=== PATIENT | male | born 1935 | race Caucasian/White ===

== ENCOUNTER → 2017-07-28 | Outpatient (CLI) | payer MEDICARE ==
[~2017-07-28] MED LIST: DIATRIZOATE MEGL/DIATRIZOA SOD 30 ML BTL PO ONE; IOPAMIDOL 370 MG/ML 200 ML INFUS..BTL INJ ONE; SODIUM CHLORIDE 0.9% 50ML 50 ML ONE
[2017-07-28 15:36] LABS: BLOOD UREA NITROGEN 19 mg/dL (7-26); BUN/CREATININE RATIO 23 (6-25); CREATININE, SERUM 0.83 mg/dL (0.72-1.25); EST GLOMERULAR FILTRATION RATE > 60 ML/MIN (60-)
--- NOTE | 2017-07-28 17:51 | Diagnostic Imaging Report ---
EXAM: CT Abdomen and Pelvis WITH contrast INDICATION: \[id number] \S\[id number] \S\LLQ ABD SWELLING, MASS AND LUMP COMPARISON: None. TECHNIQUE: Abdomen and pelvis were scanned utilizing a multidetector helical scanner from the lung base to the pubic symphysis after administration of IV contrast. Coronal and sagittal reformations were obtained. Routine protocol was performed. Scan was performed when during portal venous phase. IV CONTRAST: 100 mL of Isovue-370 ORAL CONTRAST: Gastrografin COMPLICATIONS: None RADIATION DOSE: Total DLP: 571.63 mGy*cm Estimated effective dose: (DLP x 0.015 x size factor) mSv CTDIvol has been reviewed. It is below the limits set by the Radiation Protocol Committee (RPC). FINDINGS: LINES and TUBES: None. LOWER THORAX: Unremarkable. Evidence of CABG surgery. HEPATOBILIARY: No focal hepatic lesions. No biliary ductal dilation. GALLBLADDER: Surgically absent. SPLEEN: No splenomegaly. 0.7 cm cyst in superior portion. PANCREAS: No focal masses or ductal dilatation. ADRENALS: No adrenal nodules KIDNEYS/URETERS: Kidneys enhance symmetrically. No hydronephrosis. No renal mass. Approximately 2 cm right inferior pole parapelvic cyst. There are multiple bilateral subcentimeter hypodensities which are too small to characterize. 5 mm left midpole calculus. GI TRACT: No abnormal distention, wall thickening, or evidence of bowel obstruction. Appendix is not visualized. PELVIC ORGANS/BLADDER: Unremarkable. LYMPH NODES: No lymphadenopathy. VESSELS: Moderate to severe aortoiliac atherosclerotic disease. Focal ectasia of the infrarenal abdominal aorta measuring 2.8 cm (series 2, image 53). Questionable thin septation is seen just above this level which may represent intimal flap versus artifact (series 2, image 46). PERITONEUM / RETROPERITONEUM: No free air or fluid. BONES: Age indeterminate T12 vertebral body compression deformity. SOFT TISSUES: Indirect left inguinal hernia, concerning nonobstructed loop of sigmoid colon. The hernia sac measures approximately 9.5 x 5.4 cm. IMPRESSION: 1. Indirect left inguinal hernia, containing nonobstructed loop of sigmoid colon. 2. Severe aortoiliac atherosclerotic disease with focal ectasia of infrarenal abdominal aorta, measuring 2.8 cm. Questionable thin intimal flap is seen just above this level. This can be further evaluated with dissection protocol abdominal CT. 3. Age indeterminate T12 vertebral body compression deformity. 4. Subcentimeter nonobstructive left renal calculus. Signed by: Dr. Franki Cantrell MD on 07/28/2017 5:47 PM
== END ==
LOC: CT 14:43
PROVIDERS: ATTEND Family Medicine
DX: R19.04 Left lower quadrant abdominal swelling, mass and lump (principal)
CPT/HCPCS: 36415; 74177; 82565; 84520; Q9967

== ENCOUNTER → 2017-08-23 | Outpatient (CLI) | payer MEDICARE, OTHER ==
[~2017-08-23] MED LIST changes: -DIATRIZOATE MEGL/DIATRIZOA SOD 30 ML BTL PO ONE; +SODIUM CHLORIDE 0.9% 250ML 500 ML ONE
[2017-08-23 13:36] LABS: CREATININE, SERUM 1.62 mg/dL (0.72-1.25)
--- NOTE | 2017-08-23 15:07 | Diagnostic Imaging Report ---
EXAM: CTA Abdomen and Pelvis WITH CONTRAST. DATE: 08/23/2017 12:45 PM INDICATION: COMPARISON: 07/28/2017 CT TECHNIQUE: CT angiogram of the abdomen and pelvis was obtained after the administration of IV contrast. Prospective gating was performed. Images reviewed in the axial, coronal, and sagittal planes. 3D reconstructions performed on off-line workstation. IV Contrast: 100 mL Isovue-370. Total DLP: 664 mGy*cm Est. Eff. Dose DLP x 0.015 x size factor mSv (CTDIvol has been reviewed and is below limits set by [facility]). FINDINGS: VASCULAR: Abdominal Aorta Mesenteric Segment: 27 x 26 mm. Abdominal Aorta Just Below Renal Arteries: 25 x 20 mm. Mid Infrarenal Abdominal Aorta: 24 x 22 mm. Inferior infrarenal abdominal aorta: 30 x 27 Abdominal Aortal at Bifurcation: 23 x 22 mm. Mesenteric Arteries: Celiac trunk and SMA are patent. There is mild narrowing of the proximal celiac trunk with mild distal ectasia 10 mm maximal diameter. Moderate atherosclerotic changes present in renal arteries with possible stent proximally on the left. VINCENT patent. Other: Moderate infrarenal aortic atherosclerotic changes with moderate mural plaque. There is a tiny presumed chronic focal dissection versus penetrating atheromatous ulcer in the mid infrarenal aorta just prior to area of ectasia. This is best seen axial image 96 and sagittal image 62. RCIA: 12 mm. LCIA: 12 mm. Internal Iliac Arteries: Moderate atherosclerotic changes. Abdomen: Lung Bases: No acute findings. Solid Organs: Nonobstructing renal calculi. Probable parapelvic cysts on the right. Solid organs otherwise unremarkable. Upper GI Tract: Gastric decompression limits adequate evaluation. No small bowel obstructive changes. Lymph Nodes: No suspicious adenopathy. Other: None. Pelvis: Bladder: Not included. Other: None. Colon: No acute changes in visualized colon. Distal colon not included. Bones: Moderate compression deformity T12. IMPRESSION: 1. Moderate abdominal aortic atherosclerotic changes and mural plaque. 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 2. Nonobstructing renal calculi. 3. Moderate T12 compression deformity. This was present on 07/27/2016 lumbar MRI. 4. Other findings as above. Signed by: Dr. Wu Hickman MD on 08/23/2017 3:04 PM
== END ==
LOC: CT 12:31
PROVIDERS: ATTEND Family Medicine
DX: I71.03 Dissection of thoracoabdominal aorta (principal)
CPT/HCPCS: 36415; 74175; 82565; 84520; J7050; Q9967

== ENCOUNTER → 2017-09-19 | Day surgery (SDC) | payer MEDICARE ==
[2017-09-18 12:09] LABS: BASOPHILS # (AUTO) 0.1 (0.0-0.1); BASOPHILS % 0.9 % (0.0-1.0); EOSINOPHILS # (AUTO) 0.4 (0.0-0.4); EOSINOPHILS % 3.6 % (0.0-6.0); HEMATOCRIT 41.7 % (38.2-49.6); LYMPHOCYTES # (AUTO) 2.7 (1.0-3.2); LYMPHOCYTES % 23.3 % (18.0-39.1); MEAN CORPUSCULAR HEMOGLOBIN 30.1 pg (28-32); MEAN CORPUSCULAR HGB CONC 33.6 g/dL (31-35); MEAN CORPUSCULAR VOLUME 89.7 fL (81-99); MONOCYTES # (AUTO) 0.8 (0.2-0.8); MONOCYTES % 7.2 % (4.4-11.3); NEUTROPHILS # (AUTO) 7.4 (2.1-6.9); NEUTROPHILS % 64.6 % (38.7-80.0); PLATELET COUNT 273 x10e3/uL (140-360); RED BLOOD COUNT 4.65 x10e6/uL (4.3-5.7); RED CELL DISTRIBUTION WIDTH 14.4 % (11.7-14.4)
[2017-09-18 12:24] LABS: INR 1.09; PROTHROMBIN TIME 13.3 seconds (11.9-14.5)
[2017-09-18 12:25] LABS: PARTIAL THROMBOPLASTIN TIME 28.6 seconds (23.8-35.5)
[2017-09-18 12:31] LABS: ANION GAP 13.5 mmol/L (8-16); BLOOD UREA NITROGEN 29 mg/dL (7-26); BUN/CREATININE RATIO 17 (6-25); CARBON DIOXIDE 28 mmol/L (22-29); CHLORIDE 105 mmol/L (98-107); CHOL/HDL RATIO 7.4 (3.9-4.7); CHOLESTEROL 192 MD/DL (0-199); CREATINE KINASE 125 IU/L (30-200); CREATININE, SERUM 1.74 mg/dL (0.72-1.25); EST GLOMERULAR FILTRATION RATE 38 ML/MIN (60-); GLUCOSE 97 mg/dL (74-118); HDL CHOLESTEROL 26 MG/DL (40-60); POTASSIUM 4.5 mmol/L (3.5-5.1); SODIUM 142 mmol/L (136-145)
[2017-09-18 12:40] LABS: LDL CHOLESTEROL 120 MG/DL (60-130); TRIGLYCERIDES 232 MG/DL (0-149)
[2017-09-18 12:51] LABS: THYROID STIMULATING HORMONE 4.726 uIU/mL (0.350-4.940)
[2017-09-18 12:52] LABS: DIGOXIN < 0.30 ng/mL (0.8-2.0)
[~2017-09-19] MED LIST changes: +ATORVASTATIN CA80 MG PO; +CEFAZOLIN SOD 1 GM VIAL ONE; +DEXTROSE IV ONE; +DILTIAZEM HCL60 MG PO; +FENTANYL CITRATE/PF 100MCG/2 ML INJ ONE; +HEPARIN SOD/SOD CHLORIDE 2,000 ML ONE; +LANOXIN250 MCG PO; +LIDOCAINE HCL 2% LOCAL 20 ML VIAL ONE; +MAXZIDE 37.5 M1 EACH PO; +METOPROLOL TART25 MG PO; +MIDAZOLAM HCL 2 MG/2 ML VIAL ONE; +QUINAPRIL HCL20 MG PO; +SOD CHL IV ONE; +SODIUM CHLORIDE 0.9% 100 ML 100 ML ONE; +SODIUM CHLORIDE 0.9% 1000ML 1,000 ML ONE; -SODIUM CHLORIDE 0.9% 250ML 500 ML ONE; -SODIUM CHLORIDE 0.9% 50ML 50 ML ONE; +WARFARIN SODIU2.5 MG PO
--- OUTSIDE RECORDS SUMMARY | 2017-09-19 06:10 | XMS REPORT ---
Author Author [facility] Address Unknown Phone Unavailable Care Team Providers Care Appeals Board Referee Name Role Phone JENNI RUBI Unavailable Unavailable Problems This patient has no known problems. Allergies, Adverse Reactions, Alerts This patient has no known allergies or adverse reactions. Medications This patient has no known medications. Results Test Description Test Time Test Comments Text Results Atomic Results Result Comments CTA ABDOMEN [place] [address] Patient Name: BEATRIZ DISLA MR #: [id number] : 1935 Age/Sex: 82/M Req #: [id number] Adm Physician: Ordered by: JENNI RUBI MD Report #: [id number] Location: CT Room/Bed: Procedure: [id number] CT/CTA ABDOMEN Exam Date: 08/23/17 Exam Time: 1430 REPORT STATUS: Signed EXAM: CTA Abdomen and Pelvis WITH CONTRAST. DATE: 08/23/2017 12:45 PM INDICATION: COMPARISON: 07/28/2017 CT TECHNIQUE: CT angiogram of the abdomen and pelvis was obtained after the administration of IV contrast. Prospective gating was performed. Images reviewed in the axial, coronal, and sagittal planes. 3D reconstructions performed on off-line workstation. IV Contrast: 100 mL Isovue-370. Total DLP: 664 mGy*cm Est. Eff. Dose DLP x 0.015 x size factor mSv (CTDIvol has been reviewed and is below limits set by [facility]). FINDINGS: VASCULAR: Abdominal Aorta Mesenteric Segment: 27 x 26 mm. Abdominal Aorta Just Below Renal Arteries: 25 x 20 mm. Mid Infrarenal Abdominal Aorta: 24 x 22 mm. Inferior infrarenal abdominal aorta: 30 x 27 Abdominal Aortal at Bifurcation: 23 x 22 mm. Mesenteric Arteries: Celiac trunk and SMA are patent. There is mild narrowing of the proximal celiac trunk with mild distal ectasia 10 mm maximal diameter. Moderate atherosclerotic changes present in renal arteries with possible stent proximally on the left. VINCENT patent. Other : Moderate infrarenal aortic atherosclerotic changes with moderate mural plaque. There is a tiny presumed chronic focal dissection versus penetrating atheromatous ulcer in the mid infrarenal aorta just prior to area of ectasia. This is best seen axial image 96 and sagittal image 62. RCIA: 12 mm. LCIA : 12 mm. Internal Iliac Arteries: Moderate atherosclerotic changes. Abdomen: Lung Bases: No acute findings. Solid Organs: Nonobstructing renal calculi. Probable parapelvic cysts on the right. Solid organs otherwise unremarkable. Upper GI Tract: Gastric decompression limits adequate evaluation. No small bowel obstructive changes. Lymph Nodes: No suspicious adenopathy. Other: None. Pelvis: Bladder: Not included. Other: None. Colon: No acute changes in visualized colon. Distal colon not included. Bones: Moderate compression deformity T12. IMPRESSION: 1. Moderate abdominal aortic atherosclerotic changes and mural plaque. 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 2. Nonobstructing renal calculi. 3. Moderate T12 compression deformity. This was present on 07/27/2016 lumbar MRI. 4. Other findings as above. Signed by: Dr. Wu Hickman MD on 08/23/2017 3:04 PM Dictated By: WU HICKMAN MD [id number] Transcribed By: NADIRA on 08/23/17 0399 COPY TO: JENNI RUBI MD CT ABDOMEN/PELVIS [place] [address] Patient Name: BEATRIZ DISLA MR #: [id number] : 1935 Age/Sex: 82/M Req #: [id number] [facility] Physician: Ordered by: JENNI RUBI MD Report #: [id number] Location: CT Room/Bed: Procedure: [id number] CT/CT ABDOMEN/PELVIS W Exam Date: 07/28/17 Exam Time : 1622 REPORT STATUS: Signed EXAM: CT Abdomen and Pelvis WITH contrast INDICATION: COMPARISON: None. TECHNIQUE: Abdomen and pelvis were scanned utilizing a multidetector helical scanner from the lung base to the pubic symphysis after administration of IV contrast. Coronal and sagittal reformations were obtained. Routine protocol was performed. Scan was performed when during portal venous phase. IV CONTRAST: 100 mL of Isovue-370 ORAL CONTRAST: Gastrografin COMPLICATIONS: None RADIATION DOSE: Total DLP: 571.63 mGy*cm Estimated effective dose: (DLP x 0.015 x size factor) mSv CTDIvol has been reviewed. It is below the limits set by the Radiation Protocol Committee (RPC) . FINDINGS: LINES and TUBES: None. LOWER THORAX: Unremarkable. Evidence of CABG surgery. HEPATOBILIARY: No focal hepatic lesions. No biliary ductal dilation. GALLBLADDER: Surgically absent. SPLEEN: No splenomegaly. 0.7 cm cyst in superior portion. PANCREAS: No focal masses or ductal dilatation. ADRENALS: No adrenal nodules KIDNEYS/ URETERS: Kidneys enhance symmetrically. No hydronephrosis. No renal mass. Approximately 2 cm right inferior pole parapelvic cyst. There are multiple bilateral subcentimeter hypodensities which are too small to characterize. 5 mm left midpole calculus. GI TRACT: No abnormal distention, wall thickening , or evidence of bowel obstruction. Appendix is not visualized. PELVIC ORGANS/BLADDER: Unremarkable. LYMPH NODES: No lymphadenopathy. VESSELS: Moderate to severe aortoiliac atherosclerotic disease. Focal ectasia of the infrarenal abdominal aorta measuring 2.8 cm (series 2, image 53). Questionable thin septation is seen just above this level which may represent intimal flap versus artifact (series 2, image 46). PERITONEUM / RETROPERITONEUM: No free air or fluid. BONES: Age indeterminate T12 vertebral body compression deformity. SOFT TISSUES: Indirect left inguinal hernia, concerning nonobstructed loop of sigmoid colon. The hernia sac measures approximately 9.5 x 5.4 cm. IMPRESSION: 1. Indirect left inguinal hernia, containing nonobstructed loop of sigmoid colon. 2. Severe aortoiliac atherosclerotic disease with focal ectasia of infrarenal abdominal aorta, measuring 2.8 cm. Questionable thin intimal flap is seen just above this level. This can be further evaluated with dissection protocol abdominal CT. 3. Age indeterminate T12 vertebral body compression deformity. 4. Subcentimeter nonobstructive left renal calculus. Signed by: Dr. Franki Feng MD on 07/28/2017 5:47 PM Dictated By: FRANKI FENG MD 46 Transcribed By: NADIRA on 07/28/171746 COPY TO: JENNI RUBI MD
[2017-09-19 06:38] VITALS: BP 150/71
[2017-09-19] MEDS: LORAZEPAM INJ 2 MG/ML VIAL ONE (06:54)
[2017-09-19] MEDS: FAMOTIDINE 20 MG TAB ONE (07:01)
[2017-09-19 12:26] LABS: CALCIUM 9.3 mg/dL (8.4-10.2); CREATININE, SERUM 1.73 mg/dL (0.72-1.25)
[2017-09-19 16:34] LABS: ANION GAP 10.9 mmol/L (8-16); CALCIUM 9.2 mg/dL (8.4-10.2); CREATININE, SERUM 1.85 mg/dL (0.72-1.25); POTASSIUM 3.9 mmol/L (3.5-5.1)
--- NOTE | 2017-09-22 02:04 | Operative Report ---
DATE OF PROCEDURE: September 19, 2017 DIAGNOSES: 1. Coronary artery disease with history of redo aortocoronary bypass procedure and angina pectoris. 2. Transient ischemic attack with evidence of carotid stenosis by ultrasound. 3. Abdominal aortic aneurysm with abnormal CT scan of the abdomen showing evidence and suspicion of dissection of the infrarenal abdominal aorta and the abdominal aneurysm. 4. Peripheral vascular disease. 5. Chronic kidney disease. 6. Large left inguinal hernia considered for surgical repair. PROCEDURES: 1. Cardiac catheterization including selective coronary angiography and injection of bypass grafts as well as left ventricular angiogram. 2. Aortic arch study. 3. Abdominal aortogram. 4. Closure of right femoral artery with Angio-Seal. ANESTHESIA: Local and moderate sedation. DESCRIPTION OF PROCEDURE: After usual prepping and draping, the right inguinal area was infiltrated with local lidocaine and a 6-Kazakh arterial sheath was placed under modified Seldinger technique. Selective coronary angiography and injection of bypass graft was done as well as left ventricular angiography by using modified Sunita-type catheters. A 6-Kazakh angled pigtail catheter was utilized for recording of hemodynamics, left ventricular angiogram in the HOUGH projection, and aortic arch study in the left anterior oblique position, and an abdominal aortogram, right femoral groin angiogram was obtained prior to closure of the right femoral artery with Angio-Seal. FINDINGS OF CARDIAC CATHETERIZATION: The left ventricular pressure was 170 mmHg. The aortic pressure was 165/65 with a mean of 110 mmHg. There was no gradient across the aortic valve. The left ventricular end-diastolic pressure was elevated with 14 mmHg, peaking at 24 mmHg. The left main coronary artery showed 85% stenosis in the distal portion of the left main, which extended into the ostial portion of the left anterior descending branch as well as the first obtuse marginal branch and left circumflex artery. There also was 85% stenosis just takeoff after a large diagonal branch of the LAD. There was a second obtuse marginal branch, which was totally occluded and showed distal collaterals to this branch from the right coronary artery and the left anterior descending branch. The right coronary artery was totally occluded; however, the saphenous vein graft was patent with some mild plaque formation and a 30% segmental narrowing in the mid portion. There also was about a 30% narrowing in the proximal portion of the saphenous vein graft. The left internal mammary artery was quite small showing bidirectional flow and was inserted in the mid LAD. The patient also had a saphenous vein graft to the obtuse marginal branch, which was part of the redo operation and which originated from the descending aorta and showing also bidirectional flow pattern. The left ventricular angiogram showed inferior hypokinesis and scar. The global left ventricular ejection fraction was 40%. The aortic arch study showed about a 75% narrowing of left internal carotid artery at its takeoff. There was about a 40% stenosis involving the right carotid bifurcation. The right vertebral artery had 80% ostial stenosis. There was some mild plaque formation in the right and left subclavian arteries. Extensive calcification was noted in the area of the ascending aorta and aortic arch. Selective left subclavian and vertebral angiogram were also performed showing the small left internal mammary artery and a normal appearance of the left vertebral artery and mild plaque formation in the proximal left subclavian artery without any significant stenosis. The abdominal aortogram showed patent left renal stent. There appeared to be eccentric 40% to 50% stenosis at the ostium. Right renal artery and the right kidney could not be visualized on this angiogram. There was evidence of an infrarenal abdominal aortic aneurysm above the iliac bifurcation, however, there was no evidence of dissection. There also was a plaque in the mid portion of this infrarenal abdominal aorta causing about a 30% stenosis. The common iliac arteries also showed aneurysmatic dilatations and stenotic areas. There was about 70% stenosis of the left common iliac artery and about 40% stenosis of the right common iliac artery. IMPRESSION: 1. Severe calcific coronary artery disease with patent grafts. 2. Left ventricular dysfunction with impaired ejection fraction of 40% and inferior scar and an elevated left ventricular end-diastolic pressure ranging from 14 to 24 mmHg. 3. Severe stenosis at takeoff of the left internal carotid artery with moderate stenosis of the right carotid bifurcation. Also severe stenosis was noted at the ostium of the right vertebral artery. 4. Infrarenal abdominal aortic aneurysm without any evidence of dissection. 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 This information was related to the patient and patient's family. Despite extensive arteriosclerosis and findings that were described, the patient should be able to undergo left inguinal hernia repair. He will be followed closely as outpatient and will be continued on IV fluids until hospital discharge, and was encouraged to stay well hydrated because of his chronic kidney disease and will need to be followed closely with regard to his renal function after receiving IV contrast. Job#: [id number] cc:JENNI RUBI MD
== END | disposition home or self-care (01) ==
LOC: CATH LAB 06:07
PROVIDERS: ATTEND Internal Medicine Cardiovascular Disease
DX: I25.119 Atherosclerotic heart disease of native coronary artery with unspecified angina pectoris (principal); I25.82 Chronic total occlusion of coronary artery; I71.4 Abdominal aortic aneurysm, without rupture; I72.3 Aneurysm of iliac artery; I65.23 Occlusion and stenosis of bilateral carotid arteries; I73.9 Peripheral vascular disease, unspecified; I70.8 Atherosclerosis of other arteries; K40.90 Unilateral inguinal hernia, without obstruction or gangrene, not specified as recurrent; N18.9 Chronic kidney disease, unspecified; Z01.812 Encounter for preprocedural laboratory examination; R94.31 Abnormal electrocardiogram [ECG] [EKG]; I70.1 Atherosclerosis of renal artery; Z96.0 Presence of urogenital implants; N40.0 Benign prostatic hyperplasia without lower urinary tract symptoms; I48.0 Paroxysmal atrial fibrillation; H54.7 Unspecified visual loss; Z86.711 Personal history of pulmonary embolism; Z86.73 Personal history of transient ischemic attack (TIA), and cerebral infarction without residual deficits; Z86.718 Personal history of other venous thrombosis and embolism; Z79.01 Long term (current) use of anticoagulants
CPT/HCPCS: 36140; 36200; 36415; 75625; 80048; 80061; 80162; 82550; 84443; 85025; 85610; 85730; 93452; 93459; J0690; J2001; J2060; J2250; J7030; Q9967

== ENCOUNTER 2017-09-20 15:30 | Inpatient (IN) | payer MEDICARE ==
[~2017-09-20] VITALS: Ht 170.2 cm; Wt 83.9 kg
[~2017-09-20 15:30] MED LIST changes: -CEFAZOLIN SOD 1 GM VIAL ONE; -DEXTROSE IV ONE; -FENTANYL CITRATE/PF 100MCG/2 ML INJ ONE; -HEPARIN SOD/SOD CHLORIDE 2,000 ML ONE; -IOPAMIDOL 370 MG/ML 200 ML INFUS..BTL INJ ONE; -LIDOCAINE HCL 2% LOCAL 20 ML VIAL ONE; -MIDAZOLAM HCL 2 MG/2 ML VIAL ONE; -SOD CHL IV ONE; -SODIUM CHLORIDE 0.9% 100 ML 100 ML ONE; -SODIUM CHLORIDE 0.9% 1000ML 1,000 ML ONE
[2017-09-20] MEDS ORDERED: MAGNESIUM HYDROXIDE 30 ML UDC PO PRN (15:45)
[2017-09-20] MEDS ORDERED: ACETAMINOPHEN 325 MG TAB PO PRN (15:45)
[2017-09-20] MEDS ORDERED: MAGNESIUM/ALUMINUM/SIMETHICONE 30 ML UDC PO PRN (15:45)
[2017-09-20] MEDS ORDERED: DEXTROSE 5%/0.225% SOD CHL 1,000 ML IV SCH (15:45)
[2017-09-20] MEDS ORDERED: NITROGLYCERIN 0.4 MG SUBL SL PRN (15:45)
[2017-09-20 16:00] VITALS: BP 115/56
[2017-09-20 16:40] LABS: ANION GAP 12.7 mmol/L (8-16); CALCIUM 9.7 mg/dL (8.4-10.2); CREATININE, SERUM 2.63 mg/dL (0.72-1.25); POTASSIUM 3.7 mmol/L (3.5-5.1)
[2017-09-20 16:49] VITALS: BP 115/56
[2017-09-20] MEDS: DEXTROSE 5%/0.9% SOD CHL 1,000 ML IV SCH (18:48)
--- NOTE | 2017-09-20 19:15 | Diagnostic Imaging Report ---
Ultrasound of the kidneys and renal Doppler evaluation HISTORY: Acute kidney insufficiency COMPARISON: None DISCUSSION: Examination of the kidneys is unremarkable bilaterally without evidence of hydronephrosis. The peak systolic velocity in the proximal abdominal aorta is 104 cm/s. RIGHT: The right kidney measures 9.7 cm in maximal sagittal diameter. No solid mass. No hydronephrosis. Right parapelvic cyst 2.8 cm. The peak systolic velocity in the right renal artery is 17 cm/s. (Normal < 180 cm/s) Right renal artery/aortic PSV ratio is 0.6 (Normal < 3.3) LEFT: The left kidney measures 10.4 cm in maximal sagittal diameter. No solid mass. No hydronephrosis. The peak systolic velocity in the left renal artery is 135 cm/s. (Normal < 180 cm/s) Left renal artery/aortic PSV ratio is 1.3 (Normal < 3.3) The left renal stents not well visualized sonographically. IMPRESSION: Normal sonographic appearance of the kidneys. No finding of renal artery stenosis. Signed by: Dr. Chris Nichols M.D. on 09/20/2017 7:12 PM
[2017-09-20] MEDS: ACETYLCYSTEINE 200 MG/ML 4ML VIAL PO SCH (19:30)
[2017-09-20 20:00] VITALS: BP 117/58
[2017-09-20] MEDS: ENOXAPARIN SOD INJ 40 MG/0.4 ML SYR SC SCH (20:56)
[2017-09-20] MEDS: PANTOPRAZOLE 40 MG 10ML VIAL IV SCH (20:56)
[2017-09-20] MEDS ORDERED: ENOXAPARIN SOD INJ 40 MG/0.4 ML SYR SC SCH (21:00)
[2017-09-21] VITALS (7 sets, daily range): BP systolic 112–161; BP diastolic 55–70
[2017-09-21 07:15] LABS: BASOPHILS # (AUTO) 0.1 (0.0-0.1); BASOPHILS % 0.4 % (0.0-1.0); EOSINOPHILS # (AUTO) 0.2 (0.0-0.4); EOSINOPHILS % 1.7 % (0.0-6.0); HEMATOCRIT 37.8 % (38.2-49.6); HEMOGLOBIN 12.9 g/dL (14.0-18.0); LYMPHOCYTES # (AUTO) 1.5 (1.0-3.2); LYMPHOCYTES % 10.4 % (18.0-39.1); MEAN CORPUSCULAR HEMOGLOBIN 30.2 pg (28-32); MEAN CORPUSCULAR HGB CONC 34.1 g/dL (31-35); MEAN CORPUSCULAR VOLUME 88.5 fL (81-99); MONOCYTES # (AUTO) 1.2 (0.2-0.8); MONOCYTES % 8.7 % (4.4-11.3); NEUTROPHILS # (AUTO) 10.9 (2.1-6.9); NEUTROPHILS % 78.4 % (38.7-80.0); PLATELET COUNT 186 x10e3/uL (140-360); RED BLOOD COUNT 4.27 x10e6/uL (4.3-5.7); RED CELL DISTRIBUTION WIDTH 14.4 % (11.7-14.4)
[2017-09-21 07:25] LABS: INR 1.14; PROTHROMBIN TIME 13.7 seconds (11.9-14.5)
[2017-09-21 07:30] LABS: ANION GAP 11.8 mmol/L (8-16); CALCIUM 9.4 mg/dL (8.4-10.2); CREATININE, SERUM 2.52 mg/dL (0.72-1.25); POTASSIUM 3.8 mmol/L (3.5-5.1)
[2017-09-21] MEDS: DEXTROSE 5%/0.9% SOD CHL 1,000 ML IV SCH ×2 (07:32→22:20)
[2017-09-21] MEDS: PANTOPRAZOLE 40 MG 10ML VIAL IV SCH ×2 (08:40→22:00)
[2017-09-21] MEDS: DILTIAZEM HCL 180 MG CAP CD PO SCH (08:40)
[2017-09-21] MEDS: ACETYLCYSTEINE 200 MG/ML 4ML VIAL PO SCH ×2 (08:40→17:25)
--- NOTE | 2017-09-21 14:40 | Consultation ---
DATE OF CONSULTATION: September 21, 2017 NEPHROLOGY CONSULTATION REASON FOR CONSULT: Acute kidney injury. This is an 82-year-old pleasant male who is legally blind. He has multiple medical problems, including hypertension and coronary artery disease, status post CABG times 2 and dyslipidemia. He has left lower extremity DVT, on warfarin. He has also AFib. He follows with Dr. Killian as an outpatient. He probably has chronic kidney disease, stage 3, as we go back in the records with his creatinine between 1.7 and 2. Basically, he came for a left heart cath that was done on September 20, 2017, along with selective angiography. The patient the day after was having some nausea and not feeling well. He was called in to have some labs to be checked, and his creatinine was elevated. Thus, he was called in for the hospital for management. We are consulted given his creatinine worsening and decline. Today, the patient is doing well. He has a Luz. He has a history of BPH in the past and status post TURP. PAST MEDICAL HISTORY: As mentioned above. PAST SURGICAL HISTORY: As mentioned above. FAMILY HISTORY: Positive for hypertension and coronary artery disease on the mother's side. SOCIAL HISTORY: Denies smoking, alcohol or IV drug abuse. ALLERGIES: NEGATIVE PER RECORDS. PHYSICAL EXAMINATION VITAL SIGNS: Today, his vital signs include a blood pressure of 150/70, heart rate 79, temperature 98.6. GENERAL: No acute distress times 3. HEENT: No lymphadenopathy. HEART: Regular rate and rhythm. LUNGS: Good bilateral air entry. ABDOMEN: Soft and nontender. EXTREMITIES: Trace edema. LABS: Sodium today is 138, potassium 3.8. His BUN is 28 down from 32, creatinine 2.5 from 2.6. GFR is 25. Calcium 9.4. His INR is 1.14. Hemoglobin 12.9, white count 13.9. His renal ultrasound showed that there is normal appearance of the kidney with no finding of renal artery stenosis. However, the record in his chart is mentioning that he had a left heart cath with angiography showing as it is written renal artery stenosis absent right kidney. Stent in left RA. ASSESSMENT AND PLAN 1. Acute kidney injury on chronic kidney disease, stage 3 with his baseline creatinine of 1.7 to 2 in the last few years that he has been here according to the record. He is being admitted with acute kidney injury suspecting contrast-induced nephropathy. The patient was told to drink a lot of water. However, he did not hold his WENDIE inhibitor and diuretics prior to the procedure. He had a moderate risk for contrast-induced nephropathy given his risk factors and his level of chronic kidney disease to begin with. At this point, he is getting Mucomyst and intravenous fluids. I hope his creatinine will plateau and start improving back to his baseline. We are going to do serial lab work, and to check fractional secretion of sodium. In the meantime, avoid nonsteroidal anti-inflammatory drugs and nephrotoxins, and monitor his kidney function and urine output. Also, there is a mention of renal artery stenosis absent on the right kidney and stent in the left renal artery. However, the ultrasound did not mention that. We are going to try to get the records from Dr. Killian's office regarding the procedure and what was done. He has a previous history of possible aortic dissection at that time in 2014 that was infrarenal. At this time, his ultrasound was okay. The patient was told that his right kidney is not working. I am going to order 24-hour creatinine clearance and monitor closely. Check renal perfusion scan. 2. Electrolytes: Potassium is in good range. I will change intravenous fluids to isotonic. Sodium was 136. 3. Hypertension: Blood pressure is okay. Hold WENDIE inhibitor in the meantime and hydrochlorothiazide/triamterene. 4. Coronary artery disease: Status post bypass. Clinically compensated. 5. Atrial fibrillation: Rate controlled. 6. History of deep venous thrombosis, on warfarin: Monitor INR. It was held before his heart cath procedure. 7. BPH: Status post transurethral resection of prostate. He has a Luz with good urine output. He is nonoliguric. 8. History of carotid stenosis and triple-A: Cardiology is following. Status post left heart cath. Follow their recommendations. Thank you for the consult. We will update the primary team for further recommendations. Job#: [id number] TWIN
[2017-09-21 18:08] LABS: SODIUM,URINE 68 mmol/L
[2017-09-21 18:47] LABS: EOSINOPHIL SMEAR,URINE NONE SEEN (NONE SEEN)
[2017-09-21] MEDS: ENOXAPARIN SOD INJ 40 MG/0.4 ML SYR SC SCH (22:00)
[2017-09-22] VITALS (7 sets, daily range): BP systolic 117–161; BP diastolic 53–69
[2017-09-22 08:01] LABS: BASOPHILS # (AUTO) 0.1 (0.0-0.1); BASOPHILS % 0.5 % (0.0-1.0); EOSINOPHILS # (AUTO) 0.2 (0.0-0.4); EOSINOPHILS % 1.4 % (0.0-6.0); HEMATOCRIT 34.6 % (38.2-49.6); HEMOGLOBIN 11.8 g/dL (14.0-18.0); LYMPHOCYTES # (AUTO) 1.7 (1.0-3.2); LYMPHOCYTES % 14.4 % (18.0-39.1); MEAN CORPUSCULAR HEMOGLOBIN 30.3 pg (28-32); MEAN CORPUSCULAR HGB CONC 34.1 g/dL (31-35); MEAN CORPUSCULAR VOLUME 88.7 fL (81-99); MONOCYTES # (AUTO) 1.1 (0.2-0.8); MONOCYTES % 9.1 % (4.4-11.3); NEUTROPHILS # (AUTO) 8.7 (2.1-6.9); NEUTROPHILS % 74.3 % (38.7-80.0); PLATELET COUNT 180 x10e3/uL (140-360); RED CELL DISTRIBUTION WIDTH 14.1 % (11.7-14.4)
[2017-09-22 08:35] LABS: ANION GAP 10.3 mmol/L (8-16); CALCIUM 8.9 mg/dL (8.4-10.2); CREATININE, SERUM 2.21 mg/dL (0.72-1.25); MAGNESIUM 1.2 MG/DL (1.3-2.1); POTASSIUM 3.3 mmol/L (3.5-5.1)
[2017-09-22] MEDS: DILTIAZEM HCL 180 MG CAP CD PO SCH (09:00)
[2017-09-22] MEDS: PANTOPRAZOLE 40 MG 10ML VIAL IV SCH ×2 (09:00→20:47)
[2017-09-22] MEDS: ACETYLCYSTEINE 200 MG/ML 4ML VIAL PO SCH ×2 (09:00→17:00)
[2017-09-22] MEDS ORDERED: MAGNESIUM OXIDE 400 MG TAB PO ONE (11:15)
[2017-09-22] MEDS ORDERED: POTASSIUM PHOSPHATE 15 MM in SODIUM CHLORIDE 0.9% 250ML 250 ML IV SCH ×4 (11:15)
[2017-09-22] MEDS: DEXTROSE 5%/0.9% SOD CHL 1,000 ML IV SCH (12:09)
--- NOTE | 2017-09-22 16:36 | History and Physical ---
HISTORY: This 82-year-old patient was evaluated for cardiac clearance and kindly referred by Dr. Lemus, the patient's primary care physician and manager control after he had CAT scan which showed suspicion of dissecting infrarenal abdominal aorta and abdominal aortic aneurysm. The patient has very large left inguinal hernia and is considered for surgical repair. Cardiac catheterization and angiography were performed on the 19 of September with pre and post cath because of chronic kidney disease. However, apparently after the patient left the hospital, he became nauseated, having epigastric pain. He denied vomitus, but was retching and was unable to even drink anything. The patient did not seek any medical advice and this information was obtained after the patient was contacted on the morning of 20 of September. A STAT BMP was obtained which showed acute kidney injury and worsening of the patient's creatinine in relation to his pre cardiac catheterization placement metabolic study. Since the patient was still having abdominal distress, he was advised to be hospitalized for close observation and IV fluids as well as obtaining consultation with white work cleaner. PAST HISTORY: Reveals that he had redo aortocoronary bypass procedure, history of myocardial infarction, hypertensive cardiovascular disease, chronic kidney disease, benign prostatic hypertrophy. There is history of TURP. The patient also has history of renal artery stenosis, there is a left renal stent; carotid artery disease; and peripheral vascular disease. Essentially, the patient has severe generalized arteriosclerosis. He also is legally blind. Has hyperlipidemia. Had previous DVT of the left lower extremity and pulmonary embolization. There is history of paroxysmal supraventricular tachycardia and paroxysmal atrial fibrillation, has been on chronic Coumadin anticoagulation. ALLERGIES: NONE KNOWN. SOCIAL HISTORY: Negative. FAMILY HISTORY: Positive for coronary artery disease, hypertension. REVIEW OF SYSTEMS: Remainder of systems reviewed, revealed patient denies any headache or sore throat. The patient denies any cough or sputum production. He denies any chest pain. The patient is still having some epigastric pain. He denies constipation, hematemesis, melena. The patient denies any leg pain or leg swelling. PHYSICAL EXAMINATION: VITAL SIGNS: Patient's blood pressure 130/70. He is afebrile. NECK: Carotid pulses are present. CHEST: Clear to auscultation. CARDIOVASCULAR SYSTEM: Reveals a normal apical impulse. The rhythm is regular. First and second are normal. There is no S3. ABDOMEN: Soft. There is some mild tenderness in the epigastric area. Bowel sounds are present. There are no palpable masses. EXTREMITIES: Pulses are diminished. There is no peripheral edema. NEUROLOGIC: Does not reveal any motor defect. IMPRESSIONS: 1. Acute kidney injury. 2. Chronic kidney disease. 3. Hypertensive cardiovascular disease. 4. Coronary artery disease with history of myocardial infarction and redo aortocoronary bypass procedure. 5. Carotid stenosis. 6. Renovascular hypertension. 7. Peripheral vascular disease. 8. Macular degeneration with legal blindness. The patient is admitted for intravenous fluids, close observation of his renal function, and renal consultation with Dr. Miller and his group. Job#: [id number]
[2017-09-22] MEDS ORDERED: CEFTRIAXONE SOD 1 GM VIAL IV SCH (18:15)
--- NOTE | 2017-09-22 18:43 | Diagnostic Imaging Report ---
ADDENDUM #1 The differential renal function was recalculated based on more tightly drawn contour of the very small right kidney. The differential renal function is left kidney 91% and right kidney 9%. This corresponds more closely to what is expected visually. Signed by: Dr. Kristina Ho M.D. on 09/25/2017 6:23 PM ORIGINAL REPORT Renal Scan Reason for exam: 82 M with NASIR Radiopharmaceutical: Tc-99m MAG3 11 mCi Report: After administration of the radiopharmaceutical, dynamic images of the kidneys were obtained through 40 minutes. LEFT KIDNEY: Perfusion is prompt. The left kidney has a reniform shape but is small.. Extraction of tracer from the blood pool is decreased. Clearance of tracer from the renal parenchyma begins promptly but is not complete by the end of the study. The pelvicaliceal system is not dilated. There is no significant increase in pooling of tracer within the pelvicaliceal system. Drainage of tracer from the pelvicaliceal system is normal. No stasis of tracer is seen in the left ureter. RIGHT KIDNEY: Perfusion of the right kidney is barely discernible. The kidney reniform shape and is very small. Extraction of tracer from the blood pool is markedly decreased. Clearance of tracer from the renal parenchyma is not discernible. The pelvicaliceal system is not dilated. No tracer collects in the pelvicalyceal system. Drainage of tracer from the pelvicaliceal study is normal. No stasis of tracer is seen in the right ureter. DIFFERENTIAL RENAL FUNCTION: Left kidney 85% and right kidney 15% (normal 43-57%). Impression:. 1. The left kidney shows evidence of medical renal disease. The kidney is markedly decreased in size. No hydronephrosis is present. Obstruction is not suspected. 2. The right kidney right kidney is barely discernible and has no apparent excretory function. The differential function of 15% overestimates the contribution of the right kidney to renal function. It can be recalculated on Monday09/25/2017 when a different YOSVANY can be drawn. The YOSVANY drawn includes some liver and this is driving the differential function higher. An addendum to this report will be created. Visually, contribution of the right kidney to renal function is less than 5%. Signed by: Dr. Kristina oH M.D. on 09/22/2017 6:39 PM
[2017-09-22] MEDS ORDERED: POTASSIUM PHOSPHATE 15 MM in SODIUM CHLORIDE 0.9% 250ML 250 ML IV ONE (20:00)
[2017-09-22] MEDS: CEFTRIAXONE SOD 1 GM VIAL IV SCH (20:00)
[2017-09-22] MEDS: ENOXAPARIN SOD INJ 40 MG/0.4 ML SYR SC SCH (20:47)
[2017-09-23] VITALS (8 sets, daily range): BP systolic 134–168; BP diastolic 63–98
[2017-09-23] MEDS: DEXTROSE 5%/0.9% SOD CHL 1,000 ML IV SCH (02:27)
[2017-09-23 07:37] LABS: ANION GAP 11.3 mmol/L (8-16); CALCIUM 8.8 mg/dL (8.4-10.2); CREATININE, SERUM 2.16 mg/dL (0.72-1.25); MAGNESIUM 1.4 MG/DL (1.3-2.1); PHOSPHORUS 2.9 MG/DL (2.3-4.7); POTASSIUM 3.3 mmol/L (3.5-5.1)
[2017-09-23 07:50] LABS: CLARITY,URINE CLEAR (CLEAR); COLOR,URINE YELLOW (YELLOW); KETONES,URINE NEGATIVE (NEGATIVE); LEUKOCYTE ESTERASE ,URINE 1+ (NEGATIVE); NITRITE,URINE NEGATIVE (NEGATIVE); PROTEIN,URINE DIPSTICK 1+ (NEGATIVE)
[2017-09-23 07:51] LABS: BILIRUBIN,URINE NEGATIVE (NEGATIVE); URINE UROBILINOGEN 0.2 mg/dL (0.2 - 1)
[2017-09-23 07:56] LABS: AMYLASE 45 U/L (25-125); LIPASE 56 U/L (8-78)
[2017-09-23 08:15] LABS: BACTERIA,URINE FEW /HPF; EPITHELIAL CELLS,URINE FEW /LPF
[2017-09-23] MEDS: ACETYLCYSTEINE 200 MG/ML 4ML VIAL PO SCH ×2 (09:00→17:00)
[2017-09-23] MEDS: PANTOPRAZOLE 40 MG 10ML VIAL IV SCH ×2 (10:00→20:14)
[2017-09-23] MEDS ORDERED: POTASSIUM CHLORIDE 10 MEQ TABCR PO NR (12:15)
[2017-09-23] MEDS: DILTIAZEM HCL 180 MG CAP CD PO SCH (13:40)
[2017-09-23] MEDS ORDERED: MAGNESIUM SULFATE 2GM/50ML 50 ML IV ONE (13:45)
[2017-09-23] MEDS ORDERED: SODIUM CHLORIDE 0.9% 100 ML 100 ML ONE (17:24)
[2017-09-23] MEDS: CEFTRIAXONE SOD 1 GM VIAL IV SCH (20:14)
[2017-09-23] MEDS: POLYETHYLENE GLYCOL 3350 17 GM PACK PO SCH (20:14)
[2017-09-23] MEDS: ENOXAPARIN SOD INJ 40 MG/0.4 ML SYR SC SCH (20:15)
[2017-09-24] VITALS: BP 147/63
[2017-09-24 04:00] VITALS: BP 136/61
[2017-09-24 07:09] LABS: BASOPHILS # (AUTO) 0.1 (0.0-0.1); BASOPHILS % 0.7 % (0.0-1.0); EOSINOPHILS # (AUTO) 0.3 (0.0-0.4); EOSINOPHILS % 2.6 % (0.0-6.0); HEMATOCRIT 33.3 % (38.2-49.6); HEMOGLOBIN 11.4 g/dL (14.0-18.0); LYMPHOCYTES # (AUTO) 1.5 (1.0-3.2); LYMPHOCYTES % 13.5 % (18.0-39.1); MEAN CORPUSCULAR HEMOGLOBIN 29.9 pg (28-32); MEAN CORPUSCULAR HGB CONC 34.2 g/dL (31-35); MEAN CORPUSCULAR VOLUME 87.4 fL (81-99); MONOCYTES # (AUTO) 1.1 (0.2-0.8); MONOCYTES % 9.8 % (4.4-11.3); PLATELET COUNT 212 x10e3/uL (140-360); RED BLOOD COUNT 3.81 x10e6/uL (4.3-5.7)
[2017-09-24 07:34] LABS: ANION GAP 10.5 mmol/L (8-16); CALCIUM 8.9 mg/dL (8.4-10.2); CREATININE, SERUM 2.02 mg/dL (0.72-1.25); POTASSIUM 3.5 mmol/L (3.5-5.1)
[2017-09-24 08:17] VITALS: BP 159/76
[2017-09-24] MEDS ORDERED: POLYETHYLENE GLYCOL 3350 17 GM PACK PO SCH (09:00)
[2017-09-24] MEDS: DILTIAZEM HCL 180 MG CAP CD PO SCH (09:00)
[2017-09-24] MEDS: ACETYLCYSTEINE 200 MG/ML 4ML VIAL PO SCH (09:00)
[2017-09-24 09:14] LABS: CREATININE,URINE RANDOM 97.97 mg/dL (63-166)
[2017-09-24] MEDS: PANTOPRAZOLE 40 MG 10ML VIAL IV SCH ×2 (09:47→20:27)
[2017-09-24 11:42] VITALS: BP 149/67
[2017-09-24 20:00] VITALS: BP 169/72
[2017-09-24] MEDS: CEFTRIAXONE SOD 1 GM VIAL IV SCH (20:27)
[2017-09-24] MEDS: ENOXAPARIN SOD INJ 40 MG/0.4 ML SYR SC SCH (20:27)
[2017-09-24] MEDS: POLYETHYLENE GLYCOL 3350 17 GM PACK PO SCH (20:27)
[2017-09-24 20:28] VITALS: BP 169/72
[2017-09-24] MEDS ORDERED: POTASSIUM CHLORIDE 20 MEQ TAB CR PO STA (21:08)
[2017-09-25 00:22] VITALS: BP 155/69
[2017-09-25 06:23] VITALS: BP 176/79
[2017-09-25 07:25] LABS: ANION GAP 13.7 mmol/L (8-16); CREATININE, SERUM 2.08 mg/dL (0.72-1.25); POTASSIUM 3.7 mmol/L (3.5-5.1)
[2017-09-25 08:06] VITALS: BP 184/79
[2017-09-25] MEDS: PANTOPRAZOLE 40 MG 10ML VIAL IV SCH (08:34)
[2017-09-25] MEDS: DILTIAZEM HCL 180 MG CAP CD PO SCH (08:34)
[2017-09-25 08:49] VITALS: BP 184/79
[2017-09-25 12:12] VITALS: BP 154/69
[2017-09-25] MEDS ORDERED: PANTOPRAZOLE SOD 40 MG TABEC PO SCH (21:00)
== END 2017-09-25 15:47 | disposition home or self-care (01) | DRG 684 ==
LOC: MED/SURG 15:30
PROVIDERS: ADMIT Internal Medicine Cardiovascular Disease; ATTEND Internal Medicine Cardiovascular Disease
DX: N17.9 Acute kidney failure, unspecified (principal); I25.10 Atherosclerotic heart disease of native coronary artery without angina pectoris; Z95.1 Presence of aortocoronary bypass graft; N40.0 Benign prostatic hyperplasia without lower urinary tract symptoms; I25.2 Old myocardial infarction; I48.0 Paroxysmal atrial fibrillation; Z79.01 Long term (current) use of anticoagulants; I65.29 Occlusion and stenosis of unspecified carotid artery; I73.9 Peripheral vascular disease, unspecified; E78.5 Hyperlipidemia, unspecified; Z86.718 Personal history of other venous thrombosis and embolism; H54.8 Legal blindness, as defined in USA; H35.30 Unspecified macular degeneration; T50.8X5A Adverse effect of diagnostic agents, initial encounter; I12.9 Hypertensive chronic kidney disease with stage 1 through stage 4 chronic kidney disease, or unspecified chronic kidney disease; N18.3 Chronic kidney disease, stage 3 (moderate); I71.4 Abdominal aortic aneurysm, without rupture; K40.90 Unilateral inguinal hernia, without obstruction or gangrene, not specified as recurrent; E87.6 Hypokalemia
CPT/HCPCS: 36415; 76770; 78707; 80048; 81001; 81015; 82150; 82570; 82575; 83690; 83735; 84100; 84156; 84300; 85025; 85610; 93005; 93976; 96361; A9562; J0696; J1650; J7042; J7050

== ENCOUNTER → 2017-11-06 | Day surgery (SDC) | payer MEDICARE ==
[2017-10-30 16:36] LABS: BASOPHILS # (AUTO) 0.1 (0.0-0.1); BASOPHILS % 1.1 % (0.0-1.0); EOSINOPHILS # (AUTO) 1.1 (0.0-0.4); HEMATOCRIT 36.7 % (38.2-49.6); HEMOGLOBIN 12.1 g/dL (14.0-18.0); LYMPHOCYTES # (AUTO) 2.5 (1.0-3.2); LYMPHOCYTES % 22.2 % (18.0-39.1); MEAN CORPUSCULAR HEMOGLOBIN 29.4 pg (28-32); MEAN CORPUSCULAR VOLUME 89.3 fL (81-99); MONOCYTES # (AUTO) 0.8 (0.2-0.8); MONOCYTES % 7.2 % (4.4-11.3); NEUTROPHILS # (AUTO) 6.7 (2.1-6.9); NEUTROPHILS % 59.1 % (38.7-80.0); PLATELET COUNT 250 x10e3/uL (140-360); RED BLOOD COUNT 4.11 x10e6/uL (4.3-5.7); RED CELL DISTRIBUTION WIDTH 15.2 % (11.7-14.4)
[2017-10-30 16:56] LABS: CALCIUM 9.3 mg/dL (8.4-10.2); CREATININE, SERUM 3.09 mg/dL (0.72-1.25)
--- NOTE | 2017-10-30 17:20 | Diagnostic Imaging Report ---
PROCEDURE: Frontal and lateral views of the chest. COMPARISON: None. INDICATIONS: PRE-OP. DENIES CHEST COMPLAINTS FINDINGS: Lines/tubes: None. Lungs: There is no evidence of pneumonia or pulmonary edema. Pleura: There is no pleural effusion or pneumothorax. Heart and mediastinum: The heart and the mediastinum are normal. Median sternotomy wires and mediastinal clips. Calcifications of the aortic arch. Bones: No acute bony abnormality. Remote fractures of posterior medial right-sided ribs. Spondylosis of thoracic spine. Surgical clips projected in the right upper quadrant pain and IMPRESSION: 1. No acute cardiopulmonary disease. Kraig Turner M.D. Dictated by: Kraig Turner M.D. on 10/30/2017 at 17:24 Electronically approved by: Kraig Turner M.D. on 10/30/2017 at 17:24
[~2017-11-06] MED LIST changes: +ACETAMINOPHEN 1000 MG/100 ML IV ONE; +AMLODIPINE BESYL5 MG PO; +BUPIVACAINE 0.25% 30ML SDV INJ ONE; +BUPIVACAINE/EPINEPHRINE 0.25% 10 ML SDV INJ ONE; +DEXAMETHASONE SOD PHOS INJ 4 MG/ML VIAL ONE; +EPHEDRINE SULFATE INJ 50 MG/10 ML SYR ONE; +FENTANYL CITRATE/PF 100MCG/2 ML INJ ONE; +HYDROCODONE/APAP 7.5MG-325MG 1 EA TAB ONE; +LIDOCAINE 1% W/EPINEPHRINE 20 ML VIAL ONE; +LIDOCAINE HCL 1% LOCAL INJ 20 ML VIAL ONE; +LIDOCAINE HCL 2% LOCAL INJ 5 ML SDV VIAL INJ ONE; +ONDANSETRON HCL INJ 2 MG/ML VIAL ONE; +PROPOFOL IV EMULSION 10 MG/ML 20 ML VIAL ONE; +SEVOFLURANE INHAL SOLN 250 ML PEN BTL ONE
[2017-11-06 07:34] LABS: PARTIAL THROMBOPLASTIN TIME 29.7 seconds (23.8-35.5)
[2017-11-06 07:39] LABS: INR 1.13; PROTHROMBIN TIME 13.6 seconds (11.9-14.5)
--- NOTE | 2017-11-06 10:12 | Operative Report ---
DATE OF PROCEDURE: November 06, 2017 PREOPERATIVE DIAGNOSIS: Left inguinal hernia. POSTOPERATIVE DIAGNOSIS: Sliding left inguinal hernia. OPERATION PERFORMED: Repair of sliding left inguinal hernia with extended Prolene hernia system. EMBROIDERY SPECIALIST: AMMON Ruggiero. ANESTHESIA: General. COMPLICATIONS: None. ESTIMATED BLOOD LOSS: Minimal. DESCRIPTION OF PROCEDURE: With the patient lying in bed in the supine position under good general anesthesia, the abdomen was prepped with Betadine solution and draped in the usual manner. A left inguinal incision was made. It was carried down through the subcutaneous tissue down to the external oblique aponeurosis. The external oblique was then opened along the length of its fibers and the external inguinal ring was opened. The cord was then mobilized and retracted. Contained within the cord was a large hernia sac, which contained the colon and the colon was actually stuck to the wall of the sac representing a sliding left inguinal hernia. The hernia sac was then from all of the surrounding structures and reduced back to the intra-abdominal cavity. After this was done, the preperitoneal space was then entered through the internal ring and a pocket was created without any difficulty. An extended Prolene hernia system was then placed in the preperitoneal space and the underlay patch was deployed without any problems. The overlay patch was then placed over the floor and split inferolaterally to allow for passage of the cord. The mesh was then sutured to the conjoined tendon and the inguinal ligament using interrupted sutures of 2-0 Vicryl. All layers were infiltrated on the way out with a solution of 0.25% Marcaine and 1% lidocaine mixed in equal parts. The external oblique aponeurosis was then closed with a running suture of 2-0 Vicryl. The subcutaneous tissue was approximated with 3-0 plain. The skin was closed with clips. Dressing was applied. The sponge, lap and needle count was correct. The patient tolerated the procedure well and returned to the recovery room in stable condition. Job#: [id number] TWIN
== END | disposition home or self-care (01) ==
LOC: OR 05:52
PROVIDERS: ATTEND Surgery
DX: K40.90 Unilateral inguinal hernia, without obstruction or gangrene, not specified as recurrent (principal); I48.91 Unspecified atrial fibrillation; I45.10 Unspecified right bundle-branch block; I44.4 Left anterior fascicular block; I12.9 Hypertensive chronic kidney disease with stage 1 through stage 4 chronic kidney disease, or unspecified chronic kidney disease; N18.9 Chronic kidney disease, unspecified; I25.2 Old myocardial infarction; I25.10 Atherosclerotic heart disease of native coronary artery without angina pectoris; Z01.810 Encounter for preprocedural cardiovascular examination; Z01.812 Encounter for preprocedural laboratory examination; Z01.818 Encounter for other preprocedural examination; Z79.01 Long term (current) use of anticoagulants
CPT/HCPCS: 36415 ×2; 49525; 71046; 80048; 85025; 85610; 85730; 93005; C1781; J1100; J2001 ×2; J2405